=== PATIENT | female | born 2000 | race Caucasian/White ===

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

== ENCOUNTER → 2020-06-17 15:31 | Outpatient (CLI) | payer BC, SELFPAY | PROVIDERS: PCP Pediatrics; Visit Provider Otolaryngology | DX: H92.10 Otorrhea, unspecified ear (principal) | CPT/HCPCS: 87070; 87075; 87077; 87205 ==

== ENCOUNTER 2023-09-13 11:57 | Emergency (ER) | payer OTHER, SELFPAY ==
[2023-09-13 11:59] VITALS: BP 139/81; PULSE 94; RESP 16; TEMP 36.6; O2SAT 99; BMI 26.4
[2023-09-13 13:57] VITALS: BP 136/75; PULSE 77; RESP 16; O2SAT 99
--- NOTE | 2023-09-13 14:20 | EKG12_ITS ---
Test Reason : Blood Pressure : / mmHG Vent. Rate : 063 BPM Atrial Rate : 063 BPM P-R Int : 152 ms QRS Dur : 088 ms QT Int : 402 ms P-R-T Axes : 050 039 023 degrees QTc Int : 411 ms Normal sinus rhythm with sinus arrhythmia Normal ECG Confirmed by NAIMA HYMAN, JAMES ([id number]), commercial production editor CHULA SUMMERS ([id number]) on 09/14/2023 8:38:09 AM Referred By: Confirmed By:JAMES MCNAMARA MD
--- NOTE | 2023-09-13 14:26 | NURSING ---
NO OLD EKGS
[2023-09-13 14:50] LABS: Bacteria 0 SEEN /hpf (None Seen); Mucous, Urine 0 SEEN /hpf (<or=2+); Red Blood Cells-Urine 0 SEEN /hpf (0-5); White Blood Cells 0 SEEN /hpf (0-5)
[2023-09-13 14:53] LABS: Color, Urine Yellow (Yellow); Glucose, Dipstick Normal (Normal); Ketone-Dipstick 5 mg/dl (Negative); Leukocyte Esterase-Dipstick Negative /ul (Negative); Nitrite-Dipstick Negative (Negative); Occult Blood-Urine 25 /ul (Negative); Protein-Dipstick Negative (Negative); Urine Bilirubin Dipstick Negative (Negative); Urine Clarity Clear (Clear); Urine Urobilinogen Normal (Normal)
[2023-09-13] MEDS: 0.9% Normal Saline (500mL Bag) 500 ML 1000 ML IV (14:56)
[2023-09-13] MEDS: DiphenhydrAMINE 50 MG/ML Syringe 12.5 MG IV (14:57)
[2023-09-13 14:59] LABS: Absolute Lymphocyte Count 1.72 X10^3/uL (0.83-4.51); Basophil# 0.03 X10^3/uL; Basophil% 0.7 % (0-1); Eosinophil# 0.04 X10^3/uL; Hematocrit 39.1 % (37-47); Hemoglobin 13.6 g/dL (12.0-15.0); Lymphocyte # 1.72 X10^3/ul (0.83-4.51); Lymphocyte % 42.3 % (19-41); Mean Corp Hgb Conc 34.8 g/dL (32-36); Mean Corpuscular Hgb 30.2 pg (27.0-32.0); Mean Corpuscular Volume 86.9 fL (81-99); Mean Platelet Vol. 9.1 fl (6.2-12.0); Monocyte# 0.26 X10^3/uL; Monocyte% 6.4 % (0-10); NRBC Flagged by Analyzer 0 % (0-5); Neutrophil # 2.01 X10^3/uL (2.7-7.7); Neutrophil % 49.4 % (47-70); Platelet Count 251 K/mm3 (150-450); RBC Distribution Width SD 38.5 fl (35.1-43.9); White Blood Count 4.1 K/mm3 (4.4-11.0)
[2023-09-13] MEDS: Metoclopramide 10 MG/2 ML Vial 5 MG IV (14:59)
[2023-09-13 15:00] VITALS: BP 125/80; PULSE 84; RESP 16; O2SAT 100
[2023-09-13 15:00] LABS: Internal QC Validated? YES +Cl - CLEAR BKGD; Pregnancy, Urine Negative Negative; Record Kit Lot#,Urine Preg HCG0000772476; Squamous Epithelial Cells - UA 0-5 SEEN /hpf (5-10)
[2023-09-13] MEDS: Ketorolac 15 MG/ML Vial IV (15:01)
[2023-09-13 15:14] LABS: Anion Gap 6 (5-15); BUN 6 mg/dL (7-18); BUN/Creat Ratio 9.4 RATIO (10-20); Calcium,Total 9.3 mg/dL (8.5-10.1); Chloride 106 mmol/L (98-107); Creatinine, Serum 0.64 mg/dL (0.55-1.02); EST Glomerular Filtration Rate 124 mL/min (>60); Est Glom Filt Rate - Afr Amer 150 mL/min (>60); Estimated Creatinine Clearance 127.28 ml/min; Glucose 88 mg/dL (74-106); Potassium 3.5 mmol/L (3.5-5.1); Sodium Level 138 mmol/L (136-145)
--- NOTE | 2023-09-13 15:44 | EX.ED.DYSGE1 ---
HPI History of Present Illness Chief Complaint: Hypertension Informant: patient Narrative Narrative: Patient presents secondary to head pressure and elevated blood pressure readings. Patient reports some head pressure for the past week. When she checks her blood pressure at work it is noted to be in the 160s systolic. She does not have a history of hypertension. She has tried Excedrin and Aleve without improvement. She does not have a history of migraines personally, but there is a family history. She does report some mild light sensitivity and very mild nausea. She has not had any recent head injuries. While in the emergency room, patient's systolic blood pressures have been in the 120s and 130s. PFSH PFSH Medical History no medical history no medical history Home Medications ?Medication ?Instructions ?Recorded ?Last Taken ?Type norethindrone 1 mg-ethinyl 1 tab PO DAILY 09/13/23 Unknown History estradiol 20 mcg (21)-iron 75 mg (7) tablet (Alec Fe 03/13 ()) Allergy/AdvReac Type Severity Reaction Status Date / Time amoxicillin (From Augmentin) Allergy Intermediate HIVES Verified 09/13/23 11:59 azithromycin (From Zithromax) Allergy Intermediate Hives Verified 09/13/23 11:59 cefdinir (From Omnicef) Allergy Intermediate Hives Verified 09/13/23 11:59 clavulanic acid (From Allergy Intermediate HIVES Verified 09/13/23 11:59 Augmentin) mushroom (mushrooms) Allergy Intermediate Other Verified 09/13/23 11:59 Family History Father CVA (cerebral vascular accident) Other Hypertension Surgical History History of appendectomy Hx of tonsillectomy H/O spinal fusion Social History Smoking Status: Never smoker ROS ROS ED Constitutional Constitutional ED: Denies chills or fever(s) Eyes Eyes: Reports other Details: Mild light sensitivity ; Denies discharge from eye(s) ENT ENT ED: Denies discharge from eye(s), rhinorrhea or sore throat Cardiovascular Cardiovascular: Denies chest pain or palpitations Respiratory/Chest Respiratory/Chest: Denies cough or dyspnea Gastrointestinal Gastrointestinal: Reports nausea; Denies abdominal pain, diarrhea or vomiting Genitourinary Genitourinary ED: Denies dysuria Musculoskeletal Musculoskeletal: Denies back pain, extremity pain or neck pain Integumentary Denies Abrasions or rash Neurologic Neurologic: Reports headache(s); Denies weakness Psychiatric Psychiatric: Denies anxiety or depression Allergic/Immunologic Allergic/Immunologic ED: Denies lip swelling or urticaria EXAM Physical Exam Const Vital Signs: 09/13/23 11:59 09/13/23 12:41 09/13/23 13:57 Temperature 97.9 F Temperature Source Temporal Pulse Rate 94 77 Respiratory Rate 16 16 Respiratory Pattern Normal Blood Pressure 139/81 H 136/75 H Blood Pressure Mean 100 95 Pulse Ox 99 99 Oxygen Delivery Method Room Air Room Air 09/13/23 15:00 09/13/23 15:56 Temperature 96.9 F L Temperature Source Pulse Rate 84 88 Respiratory Rate 16 19 H Respiratory Pattern Blood Pressure 125/80 H 97/64 Blood Pressure Mean 95 75 Pulse Ox 100 100 Oxygen Delivery Method Room Air Positive well nourished and well developed General Appearance ED: well developed HEENT Reports normocephalic and head/scalp atraumatic Eyes PERRL and EOMs intact bilaterally Neck supple Chest Wall inspection of chest normal and palpation of chest normal Resp normal respiratory effort and clear to auscultation bilaterally Cardio regular rate and regular rhythm GI normal to inspection, nondistended, normoactive bowel sounds Palpation: soft Extremity normal to inspection Neuro oriented x3 and no sensory deficits noted Neuro Narrative: NIH equals 0 Sensorium / Orientation: alert Motor Exam: strength 5/5 throughout Psych mental status grossly normal Skin no rashes or lesions noted MDM MDM MDM Narrative Medical decision making narrative: IV line established. Patient given Toradol, Reglan, Benadryl, and IV fluids. Labwork obtained to evaluate for leukocytosis, anemia, and electrolyte derangement. Urinalysis obtained to evaluate for infection/hematuria. EKG obtained to evaluate for cardiac arrhythmia/ischemia. History & Record Review Discussion w/independent historian: Patient Lab Data Attestation: I reviewed the patient's lab results. Labs: Laboratory Results - last 24 hr 09/13/23 09/13/23 14:30 14:48 WBC 4.1 L RBC 4.50 Hgb 13.6 Hct 39.1 MCV 86.9 MCH 30.2 MCHC 34.8 RDW Std Deviation 38.5 RDW Coeff of Pretty 12.0 Plt Count 251 MPV 9.1 Immature Gran % (Auto) 0.200 Neut % (Auto) 49.4 Lymph % (Auto) 42.3 H [place] % (Auto) 6.4 Eos % (Auto) 1.0 Baso % (Auto) 0.7 Absolute Neuts (auto) 2.0 Absolute Lymphs (auto) 1.72 Nucleated RBC % 0 Sodium 138 Potassium 3.5 Chloride 106 Carbon Dioxide 26.0 Anion Gap 6 BUN 6 L Creatinine 0.64 Estim Creat Clear Calc 127.28 Est GFR (MDRD) Af Amer 150 Est GFR (MDRD) Non-Af 124 BUN/Creatinine Ratio 9.4 L Glucose 88 Calcium 9.3 Urine Color Yellow Urine Clarity Clear Urine pH 6.0 Ur Specific [place] 1.010 Urine Protein Negative Urine Glucose (UA) Normal Urine Ketones 5 H Urine Occult Blood 25 H Urine Nitrite Negative Urine Bilirubin Negative Urine Urobilinogen Normal Ur Leukocyte Esterase Negative Urine RBC 0 SEEN Urine WBC 0 SEEN Ur Squamous Epith Cells 0-5 SEEN Urine Bacteria 0 SEEN Urine Mucus 0 SEEN Urine Test Negative EKG Initial EKG: Attestation: I personally reviewed and interpreted this EKG as follows: Interpretation: Sinus Rhythm (Sinus at 63 with no acute ischemia.) Treatment and Re-Evaluation :: CBC reveals a white count of 4.1 with 49% neutrophils. 42% lymphocytes noted. Hemoglobin is normal at 13.6. Chemistry studies are unremarkable with normal potassium and renal function. Glucose is 88. Urinalysis reveals 5 ketones with no evidence of infection. No protein noted in the urine. test is negative. On repeat evaluation patient does report some improvement in her symptoms. Her blood pressure is currently 104 systolic. I did encourage her to keep a journal of her blood pressure readings at various times of day and document any symptoms that she may be having at the time. She will follow-up with her primary care physician. Return instructions provided. Discharge Plan Triage Chief Complaint: Hypertension ED Provider: Radha Wagner Dx/Rx/DC Orders Clinical Impression: Cephalgia, Hypertension Instructions: ED Hypertension, To Be Confirmed, ED, Migraine (Classical) Prescriptions: No Action norethindrone-e.estradiol-iron [Alec Fe 03/13 (28)] 1 mg-20 mcg (21)/75 mg (7) tablet 1 tab PO DAILY Primary Care Provider: Care Physician,No Primary Referrals: Elton Ford MD [Med Staff - Training Project Manager] - 1-2 Weeks Care Physician,No Primary [Primary Care Provider] - Print Language: Ukrainian Disposition Disposition: Home, Self Care Discharge Date/Time: 09/13/23 16:05
[2023-09-13 15:56] VITALS: BP 97/64; PULSE 88; RESP 19; TEMP 36.1; O2SAT 100
== END 2023-09-13 16:05 | disposition home or self-care (01) ==
PROVIDERS: Emergency Provider Emergency Medicine; Visit Provider Emergency Medicine
DX: I10 Essential (primary) hypertension (principal)
CPT/HCPCS: 80048; 81001; 81025; 85025; 93005; 96361; 96374; 96375; 99284; J7040; A4216